=== PATIENT | male | born 1960 ===

== ENCOUNTER 2019-02-02 10:15 | Day surgery (SDC) | payer OTHER ==
[~2019-02-02 10:15] MED LIST: COZAAR50 MG PO; FORTAMET500 MG PO; GLIMEPIRIDE4 MG PO
[2019-02-02] MEDS ORDERED: PERCOCET 5-3251 EACH PO (11:12)
[2019-02-02] MEDS ORDERED: COLACE100 MG PO (11:12)
== END 2019-02-02 18:15 | disposition home or self-care (01) ==
LOC: CIR.AMB 10:15
DX: D12.8 Benign neoplasm of rectum (principal)